=== PATIENT | female | born 1990 | race Caucasian/White ===

== ENCOUNTER 2018-09-03 13:03 | Emergency (ER) | payer OTHER ==
[~2018-09-03] VITALS: Ht 157.5 cm; Wt 61.2 kg
[2018-09-03 13:12] VITALS: BP 115/60
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
[2018-09-03] MEDS ORDERED: IBUPROFEN 600 MG TABLET. PO ONE (13:30)
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
== END 2018-09-03 15:00 | disposition home or self-care (01) ==
LOC: ER 13:03
DX: S16.1XXA Strain of muscle, fascia and tendon at neck level, initial encounter (principal); S70.12XA Contusion of left thigh, initial encounter; V43.52XA Car driver injured in collision with other type car in traffic accident, initial encounter; Y93.89 Activity, other specified; Y92.410 Unspecified street and highway as the place of occurrence of the external cause; Y99.8 Other external cause status
CPT/HCPCS: 72040; 73552; 99283; 99284